=== PATIENT | female | born 1935 | race Caucasian/White ===

== ENCOUNTER 2017-11-29 15:10 | Emergency (ER) | payer OTHER, MEDICARE ==
[2017-11-29 15:30] VITALS: BP 147/78; PULSE 79; TEMP 98.3; BMI 25.9
[2017-11-29 16:30] LABS: BASO % 0.2 % (0-2.0); EOS % 1.3 % (0-4.5); HEMATOCRIT 38.9 % (32.4-45.2); HEMOGLOBIN 12.6 GM/dl (10.7-15.3); LYMPH % 29.8 % (8-40); MCH 36.9 pg (25.7-33.7); MCHC 32.4 g/dl (32.0-36.0); MEAN CELL VOLUME 113.7 fl (80-96); MEAN PLT VOLUME 9.4 fl (7.5-11.1); MONO % 8.5 % (3.8-10.2); NEUT % 60.2 % (42.8-82.8); PLATELET COUNT 206 K/MM3 (134-434); RBC 3.42 M/mm3 (3.60-5.2); RDW 13.9 % (11.6-15.6)
[2017-11-29 16:32] LABS: ADD RBC MORPHOLOGY YES
[2017-11-29 16:39] LABS: ALBUMIN 3.5 g/dl (3.5-5.0); ALK PHOS 48 U/L (32-92); ANION GAP 6 MMOL/L (8-16); BLOOD UREA NITROGEN 42 mg/dl (7-18); CHLORIDE 107 mmol/L (98-107); CO2 23 mmol/L (22-28); CREATININE 0.7 mg/dl (0.6-1.3); GLUCOSE,RANDOM 96 mg/dl (74-106); POTASSIUM 5.1 mmol/L (3.5-5.1); SGOT/AST 42 U/L (10-42); SGPT/ALT 24 U/L (10-40); SODIUM 136 mmol/L (136-145); TOT PROT 6.1 g/dl (6.4-8.3)
[2017-11-29 16:44] LABS: ACTIVATED PTT 26.4 SECONDS (25.2-36.5)
[2017-11-29 16:48] LABS: PROTHROMBIN TIME (PATIENT) 11.2 SEC (10.2-13.0)
[2017-11-29 17:07] LABS: MACROCYTOSIS 2+; PLATELET ESTIMATE ADEQUATE
[2017-11-29 17:17] LABS: URINE APPEARANCE Clear; URINE BILIRUBIN Negative (NEGATIVE); URINE COLOR Yellow; URINE GLUCOSE (UA) Negative (NEGATIVE); URINE KETONE Negative (NEGATIVE); URINE LEUK ESTERASE Negative (NEGATIVE); URINE NITRITE Negative (NEGATIVE); URINE PROTEIN Negative (NEGATIVE); URINE UROBILINOGEN 0.2 (0.2-1.0)
--- NOTE | 2017-11-29 17:19 | PDOC ---
History of Present Illness <Lizbeth Pompa - Last Filed: 11/29/17 17:48> - History of Present Illness Initial Comments: 11/29/17 17:20 The patient is a 82 year old female, with a significant past medical history of thrombocytosis (on hydroxyurea) and osteoarthritis, who presents to the emergency department via ems with daughter s/p falling backwards down 5 steps in her sons home this afternoon. She states she walked up the 5 stairs feeling well and when she was handing a gift to her [id number] while standing on the landing platform she realized she was falling backwards. She reports hitting her head on a ceramic statue on her way down. She denies LOC and her daughter at bedside states the patients niece was talking with the patient during the entire incident. The patient denies any preceding symptoms and recalls all aspects of the event today. She believes her feet may not have been entirely on the top step. The patient also reportedly hit her left hand on the way down the stairs sustaining a laceration. She reports pain to her posterior head and left hand. She also reports some mild aches to her entire body. The patient denies chest pain, shortness of breath, headache and dizziness. The patient denies fever, chills, nausea, vomit, diarrhea and constipation. The patient denies dysuria, frequency, urgency and hematuria. Allergies: NKDA <Geo Garcia - Last Filed: 11/30/17 07:32> - General Chief Complaint: Injury Stated Complaint: FELL DOWN THE STAIRS, HIT BACK OF HEAD Time Seen by Provider: 11/29/17 15:49 Past History <Lizbeth Pompa - Last Filed: 11/29/17 17:48> - Past Medical History COPD: No - Suicide/Smoking/Psychosocial Hx Smoking History: Never smoked Have you smoked in the past 12 months: No Information on smoking cessation initiated: No Hx Alcohol Use: No Drug/Substance Use Hx: No Substance Use Type: None <Geo Garcia - Last Filed: 11/30/17 07:32> - Past Medical History Allergies/Adverse Reactions: Allergies Allergy/AdvReac Type Severity Reaction Status Date / Time No Known Allergies Allergy Verified 11/29/17 15:15 Home Medications: Ambulatory Orders Aspirin [ASA -] 4 tab PO DAILY 11/29/17 Hydroxyurea 1 tab PO DAILY 11/29/17 Timolol [Betimol] 5 ml OP ASDIR 11/29/17 Review of Systems - Review of Systems Comments:: 11/29/17 17:22 "GENERAL/CONSTITUTIONAL: No fever or chills. No weakness. HEAD, EYES, EARS, NOSE AND THROAT: No change in vision. No ear pain or discharge. No sore throat. GASTROINTESTINAL: No nausea, vomiting, diarrhea or constipation. GENITOURINARY: No dysuria, frequency, or change in urination. CARDIOVASCULAR: No chest pain or shortness of breath. RESPIRATORY: No cough, wheezing, or hemoptysis. MUSCULOSKELETAL: No joint or muscle swelling or pain. No neck or back pain. SKIN: No rash NEUROLOGIC: No headache, vertigo, loss of consciousness, or change in strength/ sensation. ENDOCRINE: No increased thirst. No abnormal weight change. HEMATOLOGIC/LYMPHATIC: No anemia, easy bleeding, or history of blood clots. ALLERGIC/IMMUNOLOGIC: No hives or skin allergy." <Geo Garcia - Last Filed: 11/30/17 07:32> *Physical Exam - Vital Signs Last Vital Signs Temp Pulse Resp BP Pulse Ox 98.3 F 79 20 147/78 98 11/29/17 15:10 11/29/17 15:10 11/29/17 15:10 11/29/17 15:10 11/29/17 15:10 <Lizbeth Pompa - Last Filed: 11/29/17 17:48> - Vital Signs Last Vital Signs Temp Pulse Resp BP Pulse Ox 98.3 F 79 20 147/78 98 11/29/17 15:10 11/29/17 15:10 11/29/17 15:10 11/29/17 15:10 11/29/17 15:10 - Physical Exam Comments: 11/29/17 17:22 GENERAL: Awake, alert, and fully oriented, in no acute distress HEAD: No signs of trauma, no hematoma's or wounds EYES: PERRLA, EOMI, sclera anicteric, conjunctiva clear ENT: Auricles normal inspection, hearing grossly normal, nares patent, oropharynx clear without exudates. Moist mucosa NECK: Normal ROM, supple, no lymphadenopathy, JVD, or masses LUNGS: Breath sounds equal, clear to auscultation bilaterally. No wheezes, and no crackles HEART: Regular rate and rhythm, normal S1 and S2, no murmurs, rubs or gallops ABDOMEN: Soft, nontender, normoactive bowel sounds. No guarding, no rebound. No masses EXTREMITIES: Normal range of motion, no edema. No clubbing or cyanosis. No cords , erythema. B/l wrist with no ttp, no deformities, negative snuffbox ttp. 2+ distal pulses. Able to give thumbs up, okay sign and abduct fingers against resistance. BACK: No midline spinal tenderness in cervical/thoracic/lumbar region NEUROLOGICAL: Normal speech, cranial nerves intact, negative pronator drift, 5/ 5 strength in all 4 extremities, normal sensation to light touch in all 4 extremities, normal cerebellar exam, normal gait, normal reflexes and tone SKIN: (+) 1x1cm curvilinear laceration to proximal dorsal aspect of left hand. Otherwise, skin is warm, rry, normal turgor, no rashes or lesions noted." <Geo Garcia - Last Filed: 11/30/17 07:32> Procedures - Laceration/Wound Repair Left Hand Wound Length: to 2.5 cm Wound Explored: clean Wound's Depth, Shape: superficial, irregular Irrigated w/ Saline: Yes Anesthesia: 1% Lidocaine Amount of Anesthetic (ccs): 4 Wound Debrided: minimal Wound Repaired With: Sutures Suture Size/Type: 5:0 Number of Sutures: 5 Sterile Dressing Applied: Yes Splint Applied: No Sling Applied: No <Geo Garcia - Last Filed: 11/30/17 07:32> Heart Score/ECG Review #1 11/30/17 07:31 Twelve-lead EKG was performed and reviewed by me. Normal sinus rhythm, rate 62. Normal axis. No ST elevations or T-wave inversions. <Geo Garcia - Last Filed: 11/30/17 07:32> ED Treatment Course - LABORATORY CBC & Chemistry Diagram: 11/29/17 15:30 11/29/17 15:30 - ADDITIONAL ORDERS Additional order review: Laboratory Results 11/29/17 11/29/17 11/29/17 17:00 15:35 15:30 PT with INR INR PTT (Actin FS) Sodium 136 Potassium 5.1 Chloride 107 Carbon Dioxide 23 Anion Gap 6 L BUN 42 H Creatinine 0.7 Creat Clearance w eGFR > 60 Random Glucose 96 Calcium 9.0 Total Bilirubin 1.0 AST 42 D ALT 24 D Alkaline Phosphatase 48 Troponin I < 0.03 Total Protein 6.1 L Albumin 3.5 Urine Color Yellow Urine Appearance Clear Urine pH 5.0 Ur Specific [place] <= 1.005 Urine Protein Negative Urine Glucose (UA) Negative Urine Ketones Negative Urine Blood Trace-intact H Urine Nitrite Negative Urine Bilirubin Negative Urine Urobilinogen 0.2 Ur Leukocyte Esterase Negative 11/29/17 15:30 PT with INR 11.2 INR 1.00 PTT (Actin FS) 26.4 Sodium Potassium Chloride Carbon Dioxide Anion Gap BUN Creatinine Creat Clearance w eGFR Random Glucose Calcium Total Bilirubin AST ALT Alkaline Phosphatase Troponin I Total Protein Albumin Urine Color Urine Appearance Urine pH Ur Specific [place] Urine Protein Urine Glucose (UA) Urine Ketones Urine Blood Urine Nitrite Urine Bilirubin Urine Urobilinogen Ur Leukocyte Esterase 11/29/17 15:30 RBC 3.42 L MCV 113.7 H MCHC 32.4 RDW 13.9 MPV 9.4 Neutrophils % 60.2 Lymphocytes % 29.8 Monocytes % 8.5 Eosinophils % 1.3 Basophils % 0.2 - RADIOLOGY Radiology Studies Ordered: EXAM#: TYPE/EXAM: RESULT: [id number] CT/HEAD CT WITHOUT CONTRAST Cranial CT without contrast Clinical information: status post fall No CT evidence of intracranial injury or calvarial fracture. There appears to be a small right frontal scalp soft tissue contusion. Correlate clinically. There is no extra-axial fluid collection. No discrete infarct is in identified within the limitations of CT. There is no obvious mass lesion on noncontrast imaging. Involutional changes are noted with minimal to mild ventricular dilatation. Impression: No CT evidence of acute intracranial pathology. Reported By: Steve Morales MD 11/29/17 1557 EXAM#: TYPE/EXAM: RESULT: [id number] CT/CERVICAL SPINE CT W/O CONTR Cervical spine CT without contrast Clinical information status post fall Multiplanar imaging was performed. No fracture or posttraumatic malalignment is noted. Multilevel degenerative disc and facet joint changes are noted. Mild C4-C5 and mild C7-T1 anterolisthesis is seen which appears degenerative in nature. No gross disc herniation is identified with the limitations of CT. There is no central canal stenosis. The perivertebral soft tissues demonstrate no obvious pathology. Impression: No fracture is noted. Reported By: Steve Morales MD 11/29/17 1636 EXAM#: TYPE/EXAM: RESULT: [id number] RAD/HAND- LEFT Indication: Fall. Left hand injury. Technique: PA, lateral and oblique views of the left hand. Comparison: None available. Findings: The bones are demineralized which decreases sensitivity for nondisplaced acute fractures. There is no definite acute fracture in the left hand. Alignment is anatomic. There are severe osteoarthritic changes at the basal joint of the thumb with [id number] apposition. There are moderate osteoarthritic changes in the second DIP and mild osteoarthritic changes in the remaining DIPs. There is negative ulnar variance. There is dorsal and medial soft tissue swelling/edema in the left hand. Impression: Dorsal and medial soft tissue swelling/edema in the left hand with no definite acute fracture. Reported By: Jayant Espinoza DO 11/29/17 1741 <Lizbeth Pompa - Last Filed: 11/29/17 17:48> - LABORATORY CBC & Chemistry Diagram: 11/29/17 15:30 11/29/17 15:30 - ADDITIONAL ORDERS Additional order review: Laboratory Results 11/29/17 11/29/17 11/29/17 17:00 15:35 15:30 PT with INR INR PTT (Actin FS) Sodium 136 Potassium 5.1 Chloride 107 Carbon Dioxide 23 Anion Gap 6 L BUN 42 H Creatinine 0.7 Creat Clearance w eGFR > 60 Random Glucose 96 Calcium 9.0 Total Bilirubin 1.0 AST 42 D ALT 24 D Alkaline Phosphatase 48 Troponin I < 0.03 Total Protein 6.1 L Albumin 3.5 Urine Color Yellow Urine Appearance Clear Urine pH 5.0 Ur Specific [place] <= 1.005 Urine Protein Negative Urine Glucose (UA) Negative Urine Ketones Negative Urine Blood Trace-intact H Urine Nitrite Negative Urine Bilirubin Negative Urine Urobilinogen 0.2 Ur Leukocyte Esterase Negative 11/29/17 15:30 PT with INR 11.2 INR 1.00 PTT (Actin FS) 26.4 Sodium Potassium Chloride Carbon Dioxide Anion Gap BUN Creatinine Creat Clearance w eGFR Random Glucose Calcium Total Bilirubin AST ALT Alkaline Phosphatase Troponin I Total Protein Albumin Urine Color Urine Appearance Urine pH Ur Specific [place] Urine Protein Urine Glucose (UA) Urine Ketones Urine Blood Urine Nitrite Urine Bilirubin Urine Urobilinogen Ur Leukocyte Esterase 11/29/17 15:30 RBC 3.42 L MCV 113.7 H MCHC 32.4 RDW 13.9 MPV 9.4 Neutrophils % 60.2 Lymphocytes % 29.8 Monocytes % 8.5 Eosinophils % 1.3 Basophils % 0.2 - RADIOLOGY Radiology Studies Ordered: Category Date Time Status CERVICAL SPINE CT W/O CONTR [CT] Stat CT Scan 11/29/17 15:[address] WITHOUT CONTRAST [CT] Stat CT Scan 11/29/17 15:12 Completed CHEST X-RAY PORTABLE* [RAD] Stat Radiology 11/29/17 15:13 Taken HAND- LEFT [RAD] Stat Radiology 11/29/17 16:08 Taken <Geo Garcia - Last Filed: 11/30/17 07:32> Medical Decision Making - Medical Decision Making 11/29/17 19:24 82yo F hx thrombocytosis presents to the ED after incompletely stepping up the last stair. Pt had fall down 5 stairs. CTH, c-spine, XR with no acute fractures. Labs wnl. tdap updated. L hand with lac, repaired after irrigation with 5 SI sutures, 5.0 nylon. Hand XR neg for fracture. Scar counseling provided. Pt feels well, requests DC home. Return precautions given. I discussed the physical exam findings, ancillary test results and final diagnoses with the patient. I answered all of the patient's questions. The patient was satisfied with the care received and felt comfortable with the discharge plan and treatment plan. The patient will call their primary care physician within 24 hours to arrange follow-up and will return to the Emergency Department with any new, persistent or worsening symptoms. <Geo Garcia - Last Filed: 11/30/17 07:32> *DC/Admit/Observation/Transfer - Attestations Scribe Attestion: 11/29/17 17:32 Documentation prepared by Lizbeth Pompa, acting as internist medical doctor md for Geo Garcia MD <Lizbeth Pompa - Last Filed: 11/29/17 17:48> - Discharge Dispostion Decision to Admit order: No - Attestations Physician Attestion: 11/29/17 19:28 I, Dr. Geo Garcia MD, attest that this document has been prepared under my direction and personally reviewed by me in its entirety. I further attest, that it accurately reflects all work, treatment, procedures and medical decision -making performed by me. <Geo Garcia - Last Filed: 11/30/17 07:32> Diagnosis at time of Disposition: Laceration, Fall - Discharge Dispostion Disposition: HOME Condition at time of disposition: Stable - Patient Instructions Printed Discharge Instructions: DI for Laceration Repair -- Simple, How to Prevent Falls Additional Instructions: Keep the incision clean and dry for 24 hours. After 24 hours, you may allow the soap and water to rinse off your incision. Avoid direct pressure of the water to the incision. Pat the incision dry with a clean cloth. Apply a small amount of bacitracin onto the incision. Cover the incision loosely with a bandaid. Take tylenol as needed for pain. Return to the ER in 10 days for suture removal Return to the ER if you notice red streaks, increase redness/swelling/severe pain to the incision. Return to the ER if you have any new, worsening, or concerning symptoms
[2017-11-29] MEDS ORDERED: DIPHTH,PERTUSS(ACELL),TET 0.5 ML DISP.SYRIN IM ONE (17:27)
[2017-11-29 18:12] LABS: EPI CELLS FEW /HPF; URINE BACTERIA FEW /hpf (NEGATIVE); URINE WBC 0-2 (0-5)
--- NOTE | 2017-11-30 12:18 | EKG ---
Test Reason : Blood Pressure : / mmHG Vent. Rate : 062 BPM Atrial Rate : 062 BPM P-R Int : 138 ms QRS Dur : 090 ms QT Int : 432 ms P-R-T Axes : 052 018 036 degrees QTc Int : 438 ms NORMAL SINUS RHYTHM POSSIBLE LEFT ATRIAL ENLARGEMENT BORDERLINE ECG NO PREVIOUS ECGS AVAILABLE Confirmed by KASEY EASLEY MD ([id number]) on 11/30/2017 12:17:51 PM Referred By: DR EPSTEIN Confirmed By:KASEY EASLEY MD
== END 2017-11-29 19:32 | disposition home or self-care (01) ==
LOC: FER 15:10
PROC: 0HQ0XZZ Repair Scalp Skin, External Approach (ICD-10-PCS; principal; 2017-11-29)
DX: S01.01XA Laceration without foreign body of scalp, initial encounter (principal); W10.9XXA Fall (on) (from) unspecified stairs and steps, initial encounter; Y93.89 Activity, other specified; Y92.009 Unspecified place in unspecified non-institutional (private) residence as the place of occurrence of the external cause; D47.3 Essential (hemorrhagic) thrombocythemia; M19.90 Unspecified osteoarthritis, unspecified site
CPT/HCPCS: 36415; 70450-TC; 71045-TC-FY; 72125-TC; 73130-TC-LR-FY; 80053; 81003; 81015; 83880; 84484; 85025; 85610; 85730; 87086; 90715; 93005; 99283-25

== ENCOUNTER 2017-12-08 11:48 | Emergency (ER) | payer OTHER, MEDICARE ==
--- NOTE | 2017-12-08 11:51 | PDOC ---
Suture Removal/Wound Check HPI - History of Present Illness Chief Complaint: Suture/Staple Removal(Here) Stated Complaint: SUTURE REMOVAL LEFT HAND History Source: Yes: Patient Exam Limitations: Yes: No Limitations - Onset of Previous Treatment Comment:: 12/08/17 12:02 Ms Giordano is an 82 yo F who presents for suture removal Pt had pain in the left hand No fevers or chills no drainage Pt does report bruising in various places but is ambulatory with no difficulty Past History - Past Medical History Allergies/Adverse Reactions: Allergies Allergy/AdvReac Type Severity Reaction Status Date / Time No Known Allergies Allergy Verified 12/08/17 11:49 Home Medications: Ambulatory Orders Aspirin [ASA -] 4 tab PO DAILY 11/29/17 Hydroxyurea 1 tab PO DAILY 11/29/17 Timolol [Betimol] 5 ml OP ASDIR 11/29/17 Estradiol [Evamist] 8.1 ml TD DAILY 12/08/17 COPD: No - Suicide/Smoking/Psychosocial Hx Smoking History: Never smoked Have you smoked in the past 12 months: No Hx Alcohol Use: No Drug/Substance Use Hx: No Substance Use Type: None *Review of Systems - Review of Systems Able to Perform ROS?: Yes Constitutional: No: Chills, Diaphoresis (GENERAL/CONSTITUTIONAL: No: fever, chills, weakness, loss of appetite.), Fever HEENTM: No: Blurred Vision, Recent change in vision, Double Vision Respiratory: No: Cough, Orthopnea, Shortness of Breath Cardiac (ROS): No: Chest Pain, Edema ABD/GI: No: Abdominal Distended, Nausea, Vomiting : No: Hematuria Musculoskeletal: No: Back Pain, Muscle Pain, Neck Pain Integumentary: Yes: Bruising Neurological: No: Headache, Numbness, Weakness, Dizziness Hematologic/Lymphatic: Yes: Easy Bruising. No: Easy Bleeding *Physical Exam - Physical Exam General Appearance: Yes: Nourished, Appropriately Dressed, Apparent Distress HEENT: positive: EOMI, MAG Neck: positive: Trachea midline, Supple. negative: Rigidity, Tender midline Respiratory/Chest: negative: Chest Tender, Lungs Clear, Normal Breath Sounds, Respiratory Distress Cardiovascular: positive: Regular Rhythm, Regular Rate Gastrointestinal/Abdominal: positive: Normal Bowel Sounds. negative: Tender, Flat, Soft Musculoskeletal: positive: Normal Inspection. negative: CVA Tenderness, Decreased Range of Motion, Muscle Spasm Extremity: positive: Normal Inspection, Normal Range of Motion, Tender Integumentary: positive: Ecchymosis, Bruising. negative: Swelling Neurologic: positive: pickler helper II-XII NML intact, Fully Oriented, Alert, Normal Mood/ Affect, Normal Response, Motor Strength 07/11 Medical Decision Making - Medical Decision Making 12/08/17 12:06 Pt advised to stop pouring peroxide multiple times per day on to wound the wound does not appear to be approximated as I am able to separate epidermis will not remove sutures at this time Will ask pt to return in a few days for suture removal She does have bruising on the lower back/buttocks I do not believe that she needs repeat imaging *DC/Admit/Observation/Transfer Diagnosis at time of Disposition: Laceration - Discharge Dispostion Disposition: HOME Condition at time of disposition: Stable Decision to Admit order: No - Referrals - Patient Instructions Printed Discharge Instructions: DI for Suture Removal Additional Instructions: Ms Giordano Thank you for coming in to the ER today We will not remove stitches today Lets give your wound a few more days to heal Return in 4-5 days Please just apply bacitracin to the wound You can stop applying the peroxide monitor for redness, fevers or chills - Post Discharge Activity
[2017-12-08 11:56] VITALS: BP 124/77; PULSE 63; TEMP 98.5; BMI 26.2
== END 2017-12-08 12:14 | disposition home or self-care (01) ==
LOC: FER 11:48
DX: Z48.01 Encounter for change or removal of surgical wound dressing (principal)
CPT/HCPCS: 99281-25

== ENCOUNTER 2017-12-13 11:52 | Emergency (ER) | payer OTHER, MEDICARE ==
--- NOTE | 2017-12-13 11:59 | PDOC ---
Suture Removal/Wound Check HPI - History of Present Illness Chief Complaint: Suture/Staple Removal(Here) Stated Complaint: SUTURE REMOVAL LEFT HAND Time Seen by Provider: 12/13/17 11:53 History Source: Yes: Patient Exam Limitations: Yes: No Limitations Treated at: [facility] ED Date of Last ED visit: 12/08/17 - Previous ED Treatment Type of procedure performed on last visit: Yes: Other (wound check on 12/08, sutures originally placed on 11/29) - Onset of Previous Treatment Comment:: 82 yo F presents for suture removal, sutures placed on 11/29 after a fall. She came to ED for removal on 12/08, but the wound was not healed likely due to peroxide use. Today she returns for wound check and see if sutures can be removed. Past History - Past Medical History Allergies/Adverse Reactions: Allergies Allergy/AdvReac Type Severity Reaction Status Date / Time No Known Allergies Allergy Verified 12/08/17 11:49 Home Medications: Ambulatory Orders Aspirin [ASA -] 4 tab PO DAILY 11/29/17 Hydroxyurea 1 tab PO DAILY 11/29/17 Timolol [Betimol] 5 ml OP ASDIR 11/29/17 Estradiol [Evamist] 8.1 ml TD DAILY 12/08/17 Cardiac Disorders: Yes (WPW) COPD: No - Suicide/Smoking/Psychosocial Hx Smoking History: Never smoked Have you smoked in the past 12 months: No Hx Alcohol Use: No Drug/Substance Use Hx: No Substance Use Type: None *Review of Systems - Review of Systems Able to Perform ROS?: Yes Comments:: GENERAL/CONSTITUTIONAL: No fever or chills. No weakness. MUSCULOSKELETAL: No joint or muscle swelling or pain. No neck or back pain. SKIN: No rash NEUROLOGIC: No headache, vertigo, loss of consciousness, or change in strength/ sensation. *Physical Exam - Physical Exam Comments: GENERAL: Awake, alert, and fully oriented, in no acute distress EXTREMITIES: Normal range of motion, no edema. No clubbing or cyanosis. No cords, erythema, or tenderness NEUROLOGICAL: Cranial nerves II through XII grossly intact. Normal speech, normal gait SKIN: Warm, Dry, normal turgor, no rashes. L hand with [address] to dorsum of hand, no erythema. Procedures - Additional Procedures Progress: 12/13/17 12:10 Five sutures removed from L hand. No blood loss. Patient tolerated well. Medical Decision Making - Medical Decision Making 12/13/17 12:11 Reviewed note from prior ED visit. Patient had been applying peroxide multiple times a day, which appears to have impeded wound healing. The superficial layers of skin have healed open, but the deep portion of the wound has closed. Steristrips placed. Recommended that she keep it dry (has been applying bacitracin and bandaids, which has kept it moist, may have also impeded healing) . *DC/Admit/Observation/Transfer Diagnosis at time of Disposition: Visit for suture removal - Discharge Dispostion Disposition: HOME Condition at time of disposition: Stable Decision to Admit order: No - Referrals Referrals: Janice Espinosa [Primary Care Provider] - - Patient Instructions Printed Discharge Instructions: DI for Suture Removal - Post Discharge Activity
[2017-12-13 12:05] VITALS: BP 113/65; PULSE 65; TEMP 98.4; BMI 26.2
== END 2017-12-13 12:25 | disposition home or self-care (01) ==
LOC: FER 11:52
DX: Z48.02 Encounter for removal of sutures (principal)
CPT/HCPCS: 99281-25